=== PATIENT | female | born 1975 | race African-American/Black ===

== ENCOUNTER 2022-05-04 18:03 | Emergency (ER) | payer OTHER, SELFPAY ==
[2022-05-04] MEDS ORDERED: Cyclobenzaprine 10 MG TAB ONE (18:30)
== END 2022-05-04 18:37 | disposition home or self-care (01) ==
LOC: NAV ERS 18:03
DX: S39.012A Strain of muscle, fascia and tendon of lower back, initial encounter (principal); S46.912A Strain of unspecified muscle, fascia and tendon at shoulder and upper arm level, left arm, initial encounter; G44.309 Post-traumatic headache, unspecified, not intractable; I10 Essential (primary) hypertension; G43.909 Migraine, unspecified, not intractable, without status migrainosus; Z79.899 Other long term (current) drug therapy; V89.2XXA Person injured in unspecified motor-vehicle accident, traffic, initial encounter
CPT/HCPCS: 99283